=== PATIENT | female | born 1960 | race Caucasian/White ===

== ENCOUNTER 2022-09-30 16:11 | Emergency (ER) | payer MEDICAID ==
[~2022-09-30] VITALS: Ht 162.6 cm; Wt 75.0 kg
[2022-09-30 16:41] VITALS: BP 123/77
[2022-09-30 17:19] LABS: CLARITY,URINE SLIGHTLY CLOUDY (Clear); COLOR,URINE YELLOW (Yellow); GLUCOSE, URINE NEGATIVE (Neg); KETONES,URINE NEGATIVE (Neg); LEUKOCYTE ESTERASE ,URINE SMALL (Neg); NITRITES, URINE NEGATIVE (Neg); OCCULT BLOOD,URINE SMALL (Neg); PH,URINE 5.5 (4.8-8.0); PROTEIN,URINE NEGATIVE (Neg); UROBILINOGEN,URINE 0.2 E.U/dL (0.2-1.0)
[2022-09-30 17:24] LABS: UA COLLECTION TYPE CLN CATCH MIDSTREAM
[2022-09-30 17:36] LABS: SQUAMOUS EPITHELIAL CELL,UR FEW /LPF (FEW)
[2022-09-30 17:38] LABS: BACTERIA,URINE 1+ /HPF (Neg); WBC CLUMPS,URINE FEW /HPF (NEGATIVE); WBC,URINE 30-50 /HPF (0-4)
[2022-09-30] MEDS ORDERED: PHEN-824 PO (17:48)
[2022-09-30] MEDS ORDERED: NITR100C6 PO (17:48)
== END 2022-09-30 17:59 | disposition home or self-care (01) ==
LOC: ER 16:15
DX: N39.0 Urinary tract infection, site not specified (principal); Z91.041 Radiographic dye allergy status
CPT/HCPCS: 81001; 87077; 87088; 87186; 99283